=== PATIENT | female | born 1940 | race Caucasian/White ===

== ENCOUNTER 2017-03-11 14:31 | Emergency (ER) | payer OTHER ==
[~2017-03-11] VITALS: Ht 162.6 cm; Wt 113.4 kg
--- NOTE | 2017-03-11 14:43 | ED DYSPNEA/ASTHMA COMPLAINT ---
History of Present Illness General Chief Complaint: Dyspnea (COPD, CHF, Other) Stated Complaint: SOB, WEAKNESS Source: patient, family, old records Exam Limitations: poor historian Allergies Coded Allergies: Penicillins (unknown 03/11/17) amoxicillin (UNKNOWN 01/26/16) Triage Note: 76 Y/O FEMALE SENT BY DR WOODRUFF FOR EVAL OF WORSENING SOB X 1 WEEK. PER PT, "ALWAYS SHORT OF BREATH" BUT WORSENING OVER THE LAST WEEK. DENIES CHEST PAIN. STATES SOB WORSE WITH ANY EXERTION. BILATERAL LOWER LEGS REDDENED AND SCALY. PT STATES BASELINE. WAS AT DR RIVERA OFFICE FOR ROUTINE EXAM AND SENT TO ED BEST O2 SAT 86% - TAKEN TO ROOM 4 FOR EKG/EVAL Triage Nurses Notes Reviewed? yes HPI: Patient is a 76-year-old female presents for evaluation of dyspnea and hypoxia. Patient had a routine appointment with her a p mechanic today and her oxygen saturation was found to be in the mid 80s on room air. Patient reports she has dropped a congested cough and worsening dyspnea over the past 1 week. Cough with sputum production. Dyspnea with exertion of only walking 5-10 feet. Since yesterday increasing left lower extremity pain and swelling. Positive chills. Patient denies chest pain, fevers (IKE VU) Vital Signs & Intake/Output Vital Signs & Intake/Output Vital Signs Date Time Temp Pulse Resp B/P B/P Pulse O2 O2 Flow FiO2 Mean Ox Delivery Rate 03/11 1703 70 20 147/70 90 Room Air 03/11 1510 95 Nasal 2.0L Cannula 03/11 1440 96.7 71 18 153/72 86 Room Air Reconcile Medications Azithromycin 250 MG TABLET 1 DP PO AD lung/copd exacerbation 2 the first day followed by 1 for days 2-5 Prednisone 10 MG TABLET 0 PO DAILY COPD 40 MG X 3 DAYS, 30 MG X 3 DAYS, 20 MG X 3 DAYS, 10 MG X 3 DAYS (SYLVESTER WYNNE,KENNETH Nichols) Past History Travel History Traveled to [place] past 21 day No Medical History Any Pertinent Medical History? see below for history Neurological: NONE EENT: NONE Cardiovascular: AFIB Respiratory: asthma, COPD Gastrointestinal: NONE Hepatic: NONE Renal: NONE Musculoskeletal: NONE Psychiatric: NONE Endocrine: NONE Blood Disorders: NONE Cancer(s): NONE TEXTILE CUTTING MACHINE OPERATOR/Reproductive: NONE Surgical History Surgical History: non-contributory Psychosocial History What is your primary language Ukrainian Tobacco Use: Quit >30 days ago Family History Hx Contributory? No (IKE VU) Review of Systems Review of Systems Constitutional: Reports: chills, malaise. Denies: fever. EENTM: Reports: no symptoms. Respiratory: Reports: see HPI, cough, short of breath, sputum production, wheezing. Cardiovascular: Reports: peripheral edema. Denies: chest pain. GI: Denies: abdominal pain. Genitourinary: Reports: no symptoms. Musculoskeletal: Reports: no symptoms. Skin: Reports: rash (chronic psoriasis). Neurological/Psychological: Reports: no symptoms. Hematologic/Endocrine: Reports: no symptoms. Immunologic/Allergic: Reports: no symptoms. (IKE VU) Physical Exam Physical Exam General Appearance: alert, awake Head: atraumatic, normal appearance Eyes: Bilateral: normal appearance. Ears, Nose, Throat: hearing grossly normal Neck: normal inspection, supple, full range of motion Respiratory: decreased lung sounds diffusely. Moderate diffuse expiratory wheezing. Cardiovascular: regular rate/rhythm (no appreciable murmur) Gastrointestinal: soft, non-tender Extremities: 2+ bilateral lower extremity edema Neurologic/Psych: awake, alert, oriented x 3 Skin: diffuse plaque psoriasis. No signs of superimposed cellulitis Core Measures ACS in differential dx? Yes ASA ordered for poss ACS? No-ACS ruled out Severe Sepsis Present: No Septic Shock Present: No (IKE VU) Progress Differential Diagnosis: asthma, AMI, bronchitis, CHF, COPD, pulmonary embolism, pneumonia, unstable angina, hypercarbic respiratory failure Diagnostic Imaging: Viewed by Me: Radiology Read, Ultrasound. Discussed w/RAD: Radiology Read, Ultrasound. Initial ED EKG: normal axis, normal intervals, normal p-waves, normal QRS complex, normal sinus rhythm, no ST T wave changes Rhythm Strip: normal sinus rhythm (IKE VU) Plan of Care: Orders Procedure Date/time Status URINALYSIS 03/11 1509 Active BLOOD CULTURE 03/11 1459 Active ARTERIAL BLOOD GAS (GEN) 03/11 1454 Complete Add-on Test (ER Only) 03/11 1441 Active TROPONIN LEVEL 03/11 1440 Complete PROTHROMBIN TIME 03/11 1440 Complete COMPREHENSIVE METABOLIC PANEL 03/11 1440 Complete CBC WITHOUT DIFFERENTIAL 03/11 1440 Complete B-TYPE NATRIURETIC PEP (BNP) 03/11 1440 Complete EKG 03/11 1435 Active Laboratory Tests 03/11/17 1503: pH 7.39, pCO2 44, pO2 85, HCO3 26, ABG O2 Sat (Measured) 95.0 L, Carboxyhemoglobin 1.1 L, O2 Concentration % 2L, O2 Delivery Method N/C, Phlebotomy Draw Site RIGHT RADIAL 03/11/17 1440: CBC w Diff NO MAN DIFF REQ, RBC 4.90, MCV 94.4, MCH 30.6, RDW 14.0, MPV 8.5, Gran % 72.8, Lymphocytes % 17.6 L, Monocytes % 8.3, Eosinophils % 0.9, Basophils % 0.4, Absolute Granulocytes 6.1, Absolute Lymphocytes 1.5, Absolute Monocytes 0.7 H, Absolute Eosinophils 0.1, Absolute Basophils 0, PUBS MCHC 32.5 L 03/11/17 1308: Anion Gap 14, Estimated GFR > 60, BUN/Creatinine Ratio 11.7, Glucose 87, Calcium 9.1, Total Bilirubin 0.8, AST 23, ALT 31, Alkaline Phosphatase 76, Troponin I < 0.01, Jiq-H-Qhbmnoumyov Pept 495 H, Total Protein 7.9, Albumin 4.2, Globulin 3.7, Albumin/Globulin Ratio 1.1, PT 27.4 H, INR 2.63 H Microbiology 03/11 1522 BLOOD: Blood Culture - RECD 03/11 1308 BLOOD: Blood Culture - RECD 03/11/2017 3:00:32 PM: Discussed with Dr. Watson 03/11/2017 3:34:22 PM: Patient reports no significant change after nebulizer treatment. 03/11/2017 4:34:26 PM: Discussed with Dr. Woodruff: if patient declining admission then recommends discharge home on Prednisone 40mg x 3 days, 30mg x 3 days, 20mg x 3 days, 10mg x 3 days, and a prescription for azithromycin. Patient re-evaluated, 96% on 2 liters oxygen, oxygen turned off dropped to 88-89 % on room air. Patient declining admission. Patient repeatedly declining admission, discussed with and seen by Dr. Watson. Discussed with patient's daughter. Instructed to call 911 if any worsening of symptoms at home and to follow up with her primary care provider or her a p mechanic closely for further evaluation. (DEEPALI RIBEIRO,IKE) Departure Departure Time of Disposition: 1648 Disposition: HOME OR SELF CARE Condition: Stable Clinical Impression Primary Impression: COPD exacerbation Referrals: Nina WOODRUFF MD,SHAKIRA SOUSA (PCP/Family) Additional Instructions: Follow-up with Dr. Escudero or with Shakira Barriga either tomorrow or early next week for further evaluation. Call in the morning for appointment. Return to the emergency department immediately if any worsening of your breathing, chest pain, fevers or worsening of symptoms. Departure Forms: Customer Survey General Discharge Information Prescriptions: Current Visit Scripts Azithromycin 1 DP PO AD #6 TAB 2 the first day followed by 1 for days 2-5 Prednisone 0 PO DAILY #30 TAB 40 MG X 3 DAYS, 30 MG X 3 DAYS, 20 MG X 3 DAYS, 10 MG X 3 DAYS (IKE VU) PA/TECHNICAL PROFESSIONAL Co-Sign Statement Statement: ED Attending supervision documentation- [X] I saw and evaluated the patient. I have also reviewed all the pertinent lab results and diagnostic results. I agree with the findings and the plan of care as documented in the PA's/TECHNICAL PROFESSIONAL's documentation. [] I have reviewed the ED Record and agree with the PA's/TECHNICAL PROFESSIONAL's documentation. [] Additions or exceptions (if any) to the PAs/TECHNICAL PROFESSIONAL's note and plan are summarized below: [] (SYLVESTER WYNNE,KENNETH Nichols) Critical Care Note Critical Care Note Critical Care Time: 30-74 min (IKE VU)
[2017-03-11 15:27] LABS: PT 27.4 SEC (9.4-12.5)
[2017-03-11 15:35] LABS: ABSOLUTE BASOPHIL COUNT 0 /CUMM (0.0-0.2); ABSOLUTE EOSINOPHIL COUNT 0.1 /CUMM (0.0-0.7); ABSOLUTE GRANULOCYTE CT 6.1 /CUMM (1.4-6.5); ABSOLUTE LYMPH COUNT 1.5 /CUMM (1.2-3.4); ABSOLUTE MONOCYTE COUNT 0.7 /CUMM (0.10-0.60); BASOPHIL % 0.4 % (0.0-2.0); EOSINOPHIL % 0.9 % (0-5); GRANULOCYTE % 72.8 % (42.2-75.2); HEMATOCRIT 46.3 % (37-47); MEAN CORPUSCULAR HGB 30.6 PG (27.0-31.0); MEAN CORPUSCULAR HGB CONC 32.5 G/DL (33.0-37.0); MEAN CORPUSCULAR VOLUME 94.4 FL (81.0-99.0); MEAN PLATELET VOLUME 8.5 FL (7.4-10.4); PLATELET COUNT 207 /CUMM (130-400); WHITE BLOOD CELL COUNT 8.4 /CUMM (4.8-10.8)
--- NOTE | 2017-03-11 16:03 | RADIOLOGY REPORT ---
EXAMINATION: XR PORTABLE CHEST CLINICAL INFORMATION: 76-year-old female patient with shortness of breath. COMPARISON: Chest x-ray done 01/27/2012. TECHNIQUE: Portable AP semierect view of the chest was obtained. FINDINGS: The heart is borderline enlarged considering the AP projection. Pulmonary vascularity is normal. There is no evidence of acute pulmonary parenchymal or pleural disease. IMPRESSION: No evidence of CHF.
--- NOTE | 2017-03-11 16:20 | ULTRASOUND REPORT ---
EXAMINATION: US TRIPLEX LOWER EXTREMITY, LEFT CLINICAL INFORMATION: Pain and swelling. COMPARISON: None TECHNIQUE: Color-flow triplex imaging with spectral analysis and compression Doppler were performed on the left lower extremity. Exam was performed portably at the bedside. FINDINGS: Respiratory variation, normal compression and augmented flow are noted throughout the lower extremity above the knee. The visualized common femoral vein, femoral vein, profunda femoral vein, and popliteal vein show no evidence of deep venous thrombosis. The exam was limited and the calf veins were not seen. There is no Overton's cyst. IMPRESSION: Limited exam due to bedside portable technique with nonvisualization of the calf veins. Otherwise negative for DVT.
[2017-03-11] MEDS ORDERED: AZITHROMYCIN250 M1 PO (16:49)
[2017-03-11] MEDS ORDERED: PREDNISONE10 M2 PO (16:49)
[2017-03-11 17:03] VITALS: BP 147/70
== END 2017-03-11 17:03 ==
LOC: ERH 14:31
PROVIDERS: Emergency Medicine
DX: J44.1 Chronic obstructive pulmonary disease with (acute) exacerbation (principal)
CPT/HCPCS: 1263; 87040; 93005; 93010; J2930